=== PATIENT | male | born 1995 | race Caucasian/White ===

== ENCOUNTER → 2021-06-07 | Outpatient (CLI) | payer OTHER ==
--- NOTE | 2021-06-07 11:41 | REP ---
INDICATION: CONTUSION. COMPARISON: None TECHNIQUE: Four views of the left ribs with frontal view of the chest FINDINGS: There is a subtle linear lucency seen in the anterior end of the left 9th rib on one view only. The accompanying frontal view the chest is normal IMPRESSION: Possible nondisplaced left rib fracture as described above. <Electronically signed by Yuri Hernandez > 06/07/21 [id number]
== END ==
LOC: M WUC 11:09
PROVIDERS: ATTEND Physician Assistant
DX: S20.212A Contusion of left front wall of thorax, initial encounter (principal); X58.XXXA Exposure to other specified factors, initial encounter; Y92.9 Unspecified place or not applicable; Y93.9 Activity, unspecified; Y99.9 Unspecified external cause status